=== PATIENT | male | born 1970 | race Caucasian/White ===

== ENCOUNTER 2017-04-19 10:17 | Emergency (ER) | payer OTHER ==
[2017-04-19 10:23] VITALS: BMI 35.4
[2017-04-19 10:24] VITALS: BP 184/97
[2017-04-19] MEDS ORDERED: TORADOL 60 MG VIAL IM ONE (10:54)
[2017-04-19] MEDS ORDERED: NORFLEX INJ IM ONE (10:54)
[2017-04-19] MEDS ORDERED: TORADOL 60 MG VIAL ONE (10:56)
[2017-04-19] MEDS ORDERED: NORFLEX INJ ONE (10:57)
--- NOTE | 2017-04-19 10:57 | DR.EXTPAIN ---
HPI - Time seen Time seen: 10:50 - PCP Primary Care Physician: HUMBERTO - HPI Comment HPI Comment: HISTORY BELOW. - Complaint/Symptoms Chief Complaint Doctor Comments: FELL 4 DAYS AGO.INJURY NECK. INCREASING PAIN SINCE. PAIN GETTING WORSE. Chief Complaint:: PT C/O " I FELL AT WORK AND MY WAS COMING TO HAVE A MAMOGRAM SO I DECIDED TO COME AND MY NECK IS STIFF AND I AM IN ALOT OF PAIN AND WE DON'T GO TO WAYCROSS.. 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 Past Surgical History: No - Family History History of Family Medical Conditions: No - Social History Does patient currently use any type of tobacco product: No Have you used tobacco products in the last 12 months: No Type of Tobacco Use: None Does any household member use tobacco: No Alcohol Use: None Do you use any recreational Drugs:: No Lives With: Family Lives Where: Home - infectious screening In the last 2 months have you had wt loss of >10#?: NO Have you had fever, night sweats or hemotysis?: No Have you traveled outside the country in the last 6 months?: No Isolation: Standard ROS - Review of Systems Constitutional: No Symptoms Reported Eyes: No Symptoms Reported ENTM: No Symptoms Reported Respiratoy: No Symptoms Reported Cardiovascular: No Symptoms Reported Gastrointestinal/Abdominal: No Symptoms Reported Genitourinary: No Symptoms Reported Neurological: No Symptoms Reported Musculoskeletal: Neck Pain Integumentary: No Symptoms Reported Hematologic/Lymphatic: No Symptoms Reported Endocrine: No Symptoms Reported All Other Systems: Reviewed and Negative PE - Vital Signs Vitals: Temperature 97.6 F Pulse Rate 81 Respiratory Rate 20 Blood Pressure 184/97 O2 Sat by Pulse Oximetry 99 - General Limitations: No Limitations General Appearance: Alert - Head Head Exam: Normal Inspection - Eyes Eye exam: Normal Appearance - ENT ENT Exam: Normal External Ear Exam - Neck Neck Exam: Trachea Midline, Tenderness (POSTERIOR LOWER NECK TENDERNESS.) - Chest Chest Inspection: Symmetric Chest Wall Rise - Respiratory Respiratory Exam: Normal Lung Sounds Bilat Respiratory Exam: Bilateral Clear to Auscultation - Cardiovascular Cardiovascular Exam: Regular Rate, Normal Rhythm, Normal Heart Sounds - Abdominal Exam Abdominal Exam: Normal Bowel Sounds, Soft. negative: Tenderness - Extremities Extremities Exam: Normal Inspection - Lower Extremities Neurovascular/Tendon Exam: Normal Capillary Refill Gait Exam: Observed and Normal - Back Back Exam: Normal Inspection - Neurological Neurological Exam: Alert, Oriented X3 - Psychiatric Psychiatric Exam: Normal Affect, Normal Mood - Skin Skin Exam: Erythema MDM - Differential Diagnosis Differential Diagnosis: Contusion, Fracture, Sprain Course - Treatment Treatment: SEE ORDERS. IM TORADOL AND NORFLEX. PAIN IMPROVE. - Education/Counseling Education/Counseling: Patient, Education Educated On: Diagnosis, Needs for Follow Up ROR - XRAY XRAY Interpreted by: Radiologist XRAY Findings: REPORT DICUSS WITH PATIENT. - Diagnosis Discharge Problem: Sprain of ligaments of cervical spine, Neck pain - Discharge Plan Disposition: HOME, SELF-CARE Condition: Stable Prescriptions: Cyclobenzaprine HCl [FLEXERIL 10 MG *] 10 mg PO TID #20 tab Ibuprofen [MOTRIN TAB 800 MG *] 800 mg PO Q8H PRN #30 tab PRN Reason: Pain/Inflammation Tramadol HCl 50 mg PO Q8H PRN #15 tablet PRN Reason: - Follow ups/Referrals Follow ups/Referrals: [facility],None [Primary Care Provider] - 3 days FRANCISCO COREAS [STAFF PHYSICIAN] - 3 days - Instructions Instructions: Cervical Strain and Sprain With Rehab-[facility] Additional Instructions: RETURN TO ED IF WORSE.
--- NOTE | 2017-04-19 11:46 | CT ---
CT CERVICAL SPINE WITHOUT CONTRAST CLINICAL HISTORY: 46-year-old male status post fall on with neck pain. COMPARISON: None. TECHNIQUE: Multiple, noncontrasted axial CT images were obtained from the skull base to the cervical -thoracic junction and reformatted in the sagittal and coronal planes. FINDINGS: Straightening of the cervical lordosis as imaged. There is preservation of vertebral body a nd disc space height. The atlanto-axial and atlanto-occipital relationships are normal. The posterior elements are normal in appearance and alignment. The soft tissues of the neck and lung apices are no rmal. IMPRESSION: No evidence of acute fracture or malalignment. Reported By:
== END 2017-04-19 12:30 | disposition home or self-care (01) ==
LOC: ER 10:34
DX: S13.4XXA Sprain of ligaments of cervical spine, initial encounter (principal); M54.2 Cervicalgia; W19.XXXA Unspecified fall, initial encounter; Y92.69 Other specified industrial and construction area as the place of occurrence of the external cause
CPT/HCPCS: 72125; 96372; 99282; 99283; J1885; J2360